=== PATIENT | female | born 1960 | race Caucasian/White ===

== ENCOUNTER 2017-06-12 12:23 | Emergency (ER) | payer OTHER ==
[~2017-06-12] VITALS: Ht 165.1 cm; Wt 96.9 kg
[2017-06-12 12:25] VITALS: BP 150/83
== END 2017-06-12 14:34 | disposition home or self-care (01) ==
LOC: ED 12:43
DX: M25.571 Pain in right ankle and joints of right foot (principal)
CPT/HCPCS: 99284